=== PATIENT | male | born 1950 | race Two or more races ===

== ENCOUNTER 2025-07-01 13:30 | Emergency (ER) | payer MEDICARE, BC ==
[~2025-07-01] VITALS: Ht 172.7 cm; Wt 77.1 kg
[2025-07-01 13:40] VITALS: TEMP 98.4
[2025-07-01] MEDS: IV NS 0.9% 500 ML BAG IV ONE (14:00)
[2025-07-01 14:15] LABS: PLATELET COUNT (AUTO) 149 K/uL (150-450); RED BLOOD CELL COUNT(AUTO) 4.14 MIL/uL (4.5-6.0); RED CELL DISTRIBUTION WIDTH 13.2 % (11.5-15.0); WHITE BLOOD COUNT (AUTO) 4.4 K/uL (4.3-11.0)
[2025-07-01 14:20] LABS: CALCIUM, SERUM 8.7 mg/dL (8.5-10.1); CREATININE 1.2 mg/dL (0.6-1.3); SODIUM SERUM 138.0 mmol/L (136-145); UREA NITROGEN, BLOOD 19.0 mg/dL (7-18)
[2025-07-01 14:25] LABS: ASPARTATE AMINOTRANSFERASE 27.0 U/L (15-37); INR 1.11 (0.91-1.10); TOTAL PROTEIN, SERUM 6.8 g/dL (6.4-8.2)
[2025-07-01] MEDS ORDERED: IV NS 0.9% 250 ML IV ONE (14:38)
[2025-07-01] MEDS ORDERED: IOHEXOL-300 100 ML VIAL IV ONE (14:38)
[2025-07-01] MEDS ORDERED: IBUP-1490 PO (16:36)
[2025-07-01 17:03] VITALS: BP 118/70; O2SAT 95
== END 2025-07-01 17:00 | disposition home or self-care (01) ==
LOC: ER 13:38
DX: S20.211A Contusion of right front wall of thorax, initial encounter (principal); S30.1XXA Contusion of abdominal wall, initial encounter; I21.9 Acute myocardial infarction, unspecified; Z95.1 Presence of aortocoronary bypass graft; Z95.5 Presence of coronary angioplasty implant and graft; Z95.810 Presence of automatic (implantable) cardiac defibrillator; Z96.652 Presence of left artificial knee joint; W22.01XA Walked into wall, initial encounter; Y93.01 Activity, walking, marching and hiking; Y92.89 Other specified places as the place of occurrence of the external cause; Y99.8 Other external cause status
CPT/HCPCS: 99285; 71260; 74177; 85025; 80048; 80076; 36415; 85730; 86850; J7050; J7040; Q9967